=== PATIENT | male | born 1965 | race Caucasian/White ===

== ENCOUNTER 2020-07-19 23:11 | Emergency (ER) | payer OTHER, BC ==
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
[2020-07-20 00:32] VITALS: BP 136/92; PULSE 98; O2SAT 97
== END 2020-07-20 00:32 | disposition home or self-care (01) ==
LOC: ED 23:11
DX: Z02.82 Encounter for adoption services (principal); I25.10 Atherosclerotic heart disease of native coronary artery without angina pectoris; I10 Essential (primary) hypertension; Z98.61 Coronary angioplasty status; E78.5 Hyperlipidemia, unspecified; Y90.8 Blood alcohol level of 240 mg/100 ml or more; F10.99 Alcohol use, unspecified with unspecified alcohol-induced disorder
CPT/HCPCS: 99283